=== PATIENT | male | born 1965 | race Caucasian/White ===

== ENCOUNTER 2019-06-26 21:30 | Emergency (ER) | payer MEDICAID, SELFPAY ==
[2019-06-26 21:34] VITALS: BP 134/100; PULSE 94; RESP 18; TEMP 36.2; O2SAT 99; BMI 31.3
--- NOTE | 2019-06-26 22:25 | CTR_ITS ---
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 Radiation optimization: All CT scans at this facility use at least one of these dose optimization techniques: automated exposure control; mA and/or kV adjustment per patient size (includes targeted exams where dose is matched to clinical indication); or iterative reconstruction. Contrast material: OMNI 300; Contrast volume: 95 ml; Contrast route: 20G; COMPARISON: No relevant prior studies available. RADIATION DOSE METRICS: Total DLP: 721.82 mGy-cm FINDINGS: Orbits: Orbits are normal. Globes are unremarkable. Bones/joints: The mass is contiguous with the right mandibular condyle and adjacent angle of the mandible. The mass is also dissecting posterior to the mandible and may extend into the right temporomandibular joint. No bony destruction is identified. Sinuses: There is trace mucosal thickening in the sinuses. Auditory system: Posterior border of the gland is poorly defined and there is heterogeneous density extending into the right ear and along the right external auditory canal. The auditory canal is very narrowed with partial occlusion by the mass. The mass is difficult to measure given its infiltrative appearance but on image 27, the hyperdense component of the mass measures 4.6 by 3.5 cm. There is soft tissue density in the right external auditory canal but the middle ear cavity is aerated. Brain: No mass is identified in the visualized brain parenchyma. Lymph nodes: There is adenopathy in the right neck. Multiple nodules presumed to be lymph nodes are creating a conglomerate mass adjacent to the 2 clips on image 13 with a combined measurement of 4.1 by 1.9 cm. Submandibular/Parotid glands: There are postoperative changes right face with multiple clips along the posterior aspect of the right parotid gland, posterior border of the mandible. The right parotid gland is enlarged and very heterogeneous in density. Soft tissues: The mass is also identified in the right posterior temporalis muscle. There is induration of the subcutaneous fat along the right face and adjacent upper neck. No fluid collection or abscess. CT/CT facial bones w con [id number] IMPRESSION: Large mass involving the right face with contiguous extension of the right parotid gland, right temporalis muscle and right ear including the external auditory canal. There is partial occlusion of the right external auditory canal due to the mass or cerumen. No bony destruction. There is adenopathy in the right neck. Radiation Dose CTDIVOL = (mGy): DLP = 721.82 (mGy-cm)
--- NOTE | 2019-06-26 22:28 | W.ED.GENADLT ---
HPI - General Adult General: Chief complaint: General Medical Stated complaint: swelling behind ear Time Seen by Provider: 06/26/19 22:11 Source: patient Mode of arrival: ambulatory Limitations: no limitations History of Present Illness: HPI narrative: Patient is a 54-year-old male who presents to ED today with complaints of swelling to the right side of his face and decreased hearing from his right ear. Patient tells me he had a cancer resected from the right side of his face last year and since that time continues to worsen. He states he has his specialist team at [place] that he has seen several times but reports he is frustrated with her care stating they are not doing anything about it . Patient states he recently saw them and was having the symptoms at the time but again was dissatisfied with their care. Patient's only new symptom today is decreased hearing from his right ear. Associated symptoms: Deny chest pain, confusion, dyspnea, headache(s), nausea, rash, palpitations, syncope or vomiting Review of Systems Const: Denies: fever, chills, body aches or fatigue Eyes: Denies: change in vision, blurry vision, photophobia, eye discomfort, eye discharge, floaters or seeing flashes ENMT: Reports: Change in hearing and other (facial swelling); Denies: throat pain, enlarged tonsils, painful swallowing, ear discharge, nasal discharge or nasal congestion Card: Denies: chest pain, palpitations, irregular heart rhythm, lightheadedness, syncope or shortness of breath on exertion Resp: Denies: shortness of breath, productive cough or pain on inspiration GI: Denies: abdominal pain, nausea, vomiting, heartburn/indigestion or diarrhea : Denies: difficulty urinating or painful urination Musc: Denies: neck pain, back pain or joint pain Skin/Breast: Denies: rash Neuro: Denies: headache, numbness in extremities, weakness in extremities, lack of coordination, dizziness, vertigo or confusion PFSH ED PFSH: Social History Smoking and tobacco status: former smoker Physical Exam Const: COMMON NORMALS: average body habitus, oriented x3, alert and well nourished GENERAL APPEARANCE: cooperative ORIENTATION/CONSCIOUSNESS: Yes awake, Yes oriented to person, Yes oriented to place and Yes oriented to time HENMT: OTHER: pt with decreased hearing in R ear; his R EAC is edematous/occluded; he has extensive R sided facial swelling/deformity/nerve paralysis Neck/C-Spine: COMMON NORMALS: full ROM CERVICAL SPINE: No cervical spine tenderness and No paracervical muscle tenderness Resp: COMMON NORMALS: normal respiratory effort and clear to auscultation bilaterally AUSCULTATION: clear to auscultation bilaterally Cardio: COMMON NORMALS: regular rate and regular rhythm RATE: regular rate RHYTHM: regular rhythm Neuro: COMMON NORMALS: oriented x3 SENSORIUM/ORIENTATION: Yes alert, Yes oriented to person, Yes oriented to place and Yes oriented to time Skin: COMMON NORMALS: no rashes or lesions noted GENERAL SKIN EXAM: no rashes or lesions noted Course Vital Signs: Vital signs: Vital Signs Temperature 97.1 F L 06/26/19 21:34 Pulse Rate 94 06/26/19 21:34 Respiratory Rate 16 06/27/19 01:29 Blood Pressure 148/96 06/27/19 01:29 Pulse Oximetry 97 06/27/19 01:29 MDM - General Adult MDM Narrative: Medical decision making narrative: I spoke to patient regarding CT findings. We are still awaiting medical records to be faxed from [place] to see if any of these changes are new. I explained to patient the right ear hearing loss and occlusion is due to the large mass placing pressure on his EAC. He states that if the hearing loss was due to the mass then he is not overly concerned about this as he knew the mass was present. He states he was hoping that my ear just needed cleaned out . I explained to him unfortunately it seems to be more complicated/extensive than this. Patient tells me he is exhausted from treatments, resections, appointments, etc and at this point would no longer like to follow-up or treat his symptoms. He does not want to wait for medical records for [place] nor wishes me to speak to his ENT specialist or surgeons in [place] and would like to go home at this time. Lab Data: Labs: Lab Results 06/26/19 06/26/19 Range/Units 23:45 23:45 WBC 13.9 H (4.0-10.0) 10^3/ uL RBC 4.90 (4.1-5.3) 10^6/u L Hgb 14.3 (11.7-16.6) g/dL Hct 43.7 (42.0-52.0) % MCV 89.2 (80-94) fL MCH 29.2 (28.0-34.0) pg MCHC 32.7 (30.0-36.0) g/dL RDW 14.4 (12.1-15.1) % Plt Count 269 (130-400) 10^3/c mm MPV 8.9 (7.4-10.4) fL Neut % (Auto) 71.6 % Lymph % (Auto) 17.7 % [place] % (Auto) 6.9 % Eos % (Auto) 3.1 % Baso % (Auto) 0.3 % Neut # (Auto) 10.0 H (1.8-7.7) 10^3/u L Lymph # (Auto) 2.5 (0.8-4.8) 10^3/u L [place] # (Auto) 1.0 H (0.2-0.9) 10^3/u L Eos # (Auto) 0.4 (0.0-0.8) 10^3/u L Baso # (Auto) 0.0 (0.0-0.1) 10^3/u L Nucleated RBC % (a uto) 0 % Nucleated RBCs # 0.0 /100WBC Sodium 142 (136-145) mmol/L Potassium 3.9 (3.5-5.1) mmol/L Chloride 108 H (98-107) mmol/L Carbon Dioxide 23 (22-29) mmol/L Anion Gap 14.9 (5-19) BUN 17 (6-20) mg/dL Creatinine 1.1 (0.7-1.2) mg/dL GFR Calculation 69.5 L (90-130) mL/min Glucose 136 H (65-115) mg/dL Calculated Osmolal ity 292 (285-295) mOsm/k g Calcium 8.4 L (8.5-10.5) mg/dL Total Bilirubin 0.2 (0.15-1.2) mg/dL AST 15 (0-40) U/L ALT 14 (0-41) U/L Alkaline Phosphata se 60 (40-130) IU/L Total Protein 6.5 L (6.6-8.7) g/dL Albumin 3.5 (3.5-5.2) g/dL Globulin 3.0 (1.3-4.6) g/dL Imaging Data^: CT facial bones: Radiologist's impression: [address] [place] [address] CT Scan Report Signed Patient: Jeancarlos Grande Unit #: [id number] : 1965 Age/Sex: 54 / M ADM Date: 06/26/19 Loc: ER Room/Bed: Attending Dr: Ordering Provider/Ordering MD: Leandra Farrell Date of Service: 06/26/19 Procedure(s): CT facial bones w con [id number] Accession Number(s): [id number] Report Number: [id number] PROCEDURE INFORMATION: Exam: CT Maxillofacial With Contrast Exam date and time: 06/26/2019 12:24 AM Age: 54 years old Clinical indication: Pain; Mass, lump, or swelling and other: Hearing loss RT ear; Other: RT side face; Prior surgery; Surgery date: 1-6 months; Surgery type: Surgery for melanoma RT side of face; Additional info: R sided swelling; Hearing loss; HX of cancer resection TECHNIQUE: Imaging protocol: Computed tomography images of the face with intravenous contrast. Radiation optimization: All CT scans at this facility use at least one of these dose optimization techniques: automated exposure control; mA and/or kV adjustment per patient size (includes targeted exams where dose is matched to clinical indication); or iterative reconstruction. Contrast material: OMNI 300; Contrast volume: 95 ml; Contrast route: 20G; COMPARISON: No relevant prior studies available. RADIATION DOSE METRICS: Total DLP: 721.82 mGy-cm FINDINGS: Orbits: Orbits are normal. Globes are unremarkable. Bones/joints: The mass is contiguous with the right mandibular condyle and adjacent angle of the mandible. The mass is also dissecting posterior to the mandible and may extend into the right temporomandibular joint. No bony destruction is identified. Sinuses: There is trace mucosal thickening in the sinuses. Auditory system: Posterior border of the gland is poorly defined and there is heterogeneous density extending into the right ear and along the right external auditory canal. The auditory canal is very narrowed with partial occlusion by the mass. The mass is difficult to measure given its infiltrative appearance but on image 27, the hyperdense component of the mass measures 4.6 by 3.5 cm. There is soft tissue density in the right external auditory canal but the middle ear cavity is aerated. Brain: No mass is identified in the visualized brain parenchyma. Lymph nodes: There is adenopathy in the right neck. Multiple nodules presumed to be lymph nodes are creating a conglomerate mass adjacent to the 2 clips on image 13 with a combined measurement of 4.1 by 1.9 cm. Submandibular/Parotid glands: There are postoperative changes right face with multiple clips along the posterior aspect of the right parotid gland, posterior border of the mandible. The right parotid gland is enlarged and very heterogeneous in density. Soft tissues: The mass is also identified in the right posterior temporalis muscle. There is induration of the subcutaneous fat along the right face and adjacent upper neck. No fluid collection or abscess. CT/CT facial bones w con [id number] IMPRESSION: Large mass involving the right face with contiguous extension of the right parotid gland, right temporalis muscle and right ear including the external auditory canal. There is partial occlusion of the right external auditory canal due to the mass or cerumen. No bony destruction. There is adenopathy in the right neck. Radiation Dose CTDIVOL = (mGy): DLP = 721.82 (mGy-cm) Dictated By: Carola Garcia Signed By: Carola Garcia Signed Date/Time: 06/27/1954 DD/ Discharge Plan Discharge Patient Disposition: Home, Self-Care Clinical Impression: Facial malignant neoplasm Condition: Stable Prescriptions: No Action Unable to Assess RF: 0 Discharge Orders: Discharge Order (Routine); Ordered 06/27/19 Ordered By: Leandra Farrell Referrals: Mary Mast, [facility] [Family Provider] - Discharge Diet: Usual diet Discharge Activity: Resume usual activity Activity Restrictions/Additional Instructions: As discussed if you wish to follow-up with your specialty physicians at [facility] please contact their office. You did not want me to wait for records from [place] or speak to any of your specialty providers and have ultimately expressed to no longer treat your cancer. You may return to the emergency department at anytime for any concerns you may have. Discharge Date/Time: 06/27/19 01:30 Coding Level of Care Code ED Supervisor Assembly Stock for Chg Fwd Exam Detailed
[2019-06-26 23:50] LABS: Basophils % 0.3 %; Eosinophils # 0.4 10^3/uL (0.0-0.8); Eosinophils % 3.1 %; Hematocrit 43.7 % (42.0-52.0); Hemoglobin 14.3 g/dL (11.7-16.6); Lymphocytes # 2.5 10^3/uL (0.8-4.8); Lymphocytes % 17.7 %; Mean Corpuscular HGB Conc 32.7 g/dL (30.0-36.0); Mean Corpuscular Hemoglobin 29.2 pg (28.0-34.0); Mean Corpuscular Volume 89.2 fL (80-94); Mean Platelet Volume 8.9 fL (7.4-10.4); Monocytes % 6.9 %; Neutrophils % 71.6 %; Nucleated Red Blood Cells % 0 %; Platelet Count 269 10^3/cmm (130-400); Red Cell Distribution Width 14.4 % (12.1-15.1); White Blood Count 13.9 10^3/uL (4.0-10.0)
[2019-06-27 00:04] LABS: Alanine Aminotransferase 14 U/L (0-41); Albumin Level 3.5 g/dL (3.5-5.2); Alkaline Phosphatase 60 IU/L (40-130); Anion Gap 14.9 (5-19); Aspartate Amino Transferase 15 U/L (0-40); Blood Urea Nitrogen 17 mg/dL (6-20); Calcium 8.4 mg/dL (8.5-10.5); Carbon Dioxide 23 mmol/L (22-29); Chloride 108 mmol/L (98-107); Glomerular Filtration Rate 69.5 mL/min (90-130); Glucose 136 mg/dL (65-115); Osmolality Calculated 292 mOsm/kg (285-295); Potassium 3.9 mmol/L (3.5-5.1); Sodium 142 mmol/L (136-145); Total Bilirubin 0.2 mg/dL (0.15-1.2); Total Protein 6.5 g/dL (6.6-8.7)
[2019-06-27] MEDS: iohexol 300 mg/mL 100 mL Btl IV (00:40)
[2019-06-27 01:29] VITALS: BP 148/96; RESP 16; O2SAT 97
== END 2019-06-27 01:30 | disposition home or self-care (01) ==
PROVIDERS: Emergency Provider Physician Assistant; Family Provider Nurse Practitioner Family
DX: C76.0 Malignant neoplasm of head, face and neck (principal); Z87.891 Personal history of nicotine dependence
CPT/HCPCS: 12345; 70487; 80053; 85025; 99282; 99283; Q9967